=== PATIENT | female | born 1985 | race Caucasian/White ===

== ENCOUNTER → 2020-11-26 | Outpatient (CLI) | payer OTHER ==
--- NOTE | 2020-11-26 09:08 | US ---
EXAMINATION TYPE: US abdomen complete DATE OF EXAM: 11/26/2020 COMPARISON: NONE CLINICAL HISTORY: R10.11 Abdomal pain rt upper quadrant. EXAM MEASUREMENTS: Liver Length: 14.2 cm Gallbladder Wall: 0.2 cm CBD: 0.3 cm Spleen: 8.4 cm Right Kidney: 11.1 x 3.7 x 4.5 cm Left Kidney: 10.3 x 5.7 x 5.0 cm Pancreas: Tail obscured by overlying bowel gas, otherwise wnl Liver: wnl Gallbladder: wnl Evidence for sonographic Miles's sign: no CBD: wnl Spleen: wnl Right Kidney: No hydronephrosis or masses seen Left Kidney: No hydronephrosis or masses seen Upper IVC: wnl Abd Aorta: bifurcation obscured by bowel gas The liver is homogenous. The intrahepatic portion of the IVC and proximal abdominal aorta are within normal limits. There is no evidence of cholelithiasis. Common bile duct is unremarkable. The visu alized portions of the pancreas are homogenous. The spleen is unremarkable. Kidneys are symmetric a nd free of hydronephrosis. No renal lesions are seen. IMPRESSION: No definite sonographic abnormality of the abdomen.
== END | disposition home or self-care (01) ==
LOC: RADUSWWP 08:21
PROVIDERS: ATTEND Family Medicine
DX: R10.11 Right upper quadrant pain (principal)
CPT/HCPCS: 76700